=== PATIENT | male | born 1995 | race Two or more races ===

== ENCOUNTER → 2016-09-20 | Outpatient (CLI) | payer OTHER, MEDICAID | LOC: M OUTALCOH 10:53 | PROVIDERS: ATTEND Psychiatry & Neurology Psychiatry | DX: F12.20 Cannabis dependence, uncomplicated (principal); F10.20 Alcohol dependence, uncomplicated ==

== ENCOUNTER 2016-10-17 16:00 | Outpatient (RCR) | payer MEDICAID | END 2016-10-18 | LOC: M OUTALCOH 16:00 | PROVIDERS: ATTEND Psychiatry & Neurology Psychiatry | DX: F12.20 Cannabis dependence, uncomplicated (principal); F10.20 Alcohol dependence, uncomplicated; F17.200 Nicotine dependence, unspecified, uncomplicated ==

== ENCOUNTER 2016-10-28 14:00 | Outpatient (RCR) | payer MEDICAID | END 2016-11-17 | LOC: M OUTALCOH 14:00 | PROVIDERS: ATTEND Psychiatry & Neurology Psychiatry | DX: F10.20 Alcohol dependence, uncomplicated (principal); F12.20 Cannabis dependence, uncomplicated; F17.210 Nicotine dependence, cigarettes, uncomplicated ==

== ENCOUNTER → 2016-12-02 | Outpatient (CLI) | payer MEDICAID | LOC: M OUTALCOH 13:01 | PROVIDERS: ATTEND Psychiatry & Neurology Psychiatry | DX: F12.20 Cannabis dependence, uncomplicated (principal); F10.20 Alcohol dependence, uncomplicated ==

== ENCOUNTER 2016-12-13 15:36 | Outpatient (RCR) | payer MEDICAID | END 2016-12-18 | LOC: M OUTALCOH 15:36 | PROVIDERS: ATTEND Psychiatry & Neurology Psychiatry | DX: F10.20 Alcohol dependence, uncomplicated (principal); F12.20 Cannabis dependence, uncomplicated; F17.201 Nicotine dependence, unspecified, in remission ==

== ENCOUNTER 2017-01-09 13:00 | Outpatient (RCR) | payer MEDICAID | END 2017-01-17 | LOC: M OUTALCOH 13:00 | PROVIDERS: ATTEND Psychiatry & Neurology Psychiatry | DX: F12.20 Cannabis dependence, uncomplicated (principal); F10.20 Alcohol dependence, uncomplicated; F17.200 Nicotine dependence, unspecified, uncomplicated ==

== ENCOUNTER 2017-01-09 14:00 | Outpatient (RCR) | payer MEDICAID | END 2017-01-17 | LOC: M OUTALCOH 14:00 | PROVIDERS: ATTEND Psychiatry & Neurology Psychiatry | DX: F12.20 Cannabis dependence, uncomplicated (principal); F10.20 Alcohol dependence, uncomplicated; F17.200 Nicotine dependence, unspecified, uncomplicated ==

== ENCOUNTER → 2017-06-03 | Outpatient (CLI) | payer MEDICAID | LOC: M OUTALCOH 09:07 | PROVIDERS: ATTEND Psychiatry & Neurology Psychiatry | DX: F12.20 Cannabis dependence, uncomplicated (principal); F10.20 Alcohol dependence, uncomplicated ==

== ENCOUNTER 2017-06-16 15:31 | Inpatient (IN) | payer MEDICAID ==
[~2017-06-16] VITALS: Ht 180.3 cm; Wt 65.0 kg
[2017-06-16 17:36] LABS: MEAN CORPUSCULAR HEMOGLOBIN 33.2 pg (27.0-33.0); MEAN CORPUSCULAR HGB CONC 36.3 g/dl (32.0-36.5); MEAN CORPUSCULAR VOLUME 91.6 fl (80.0-96.0); PLATELET COUNT, AUTOMATED 348 10^3/uL (150-450); RED CELL DISTRIBUTION WIDTH 20.9 % (11.5-14.5); WHITE BLOOD COUNT 11.8 10^3/uL (4.0-10.0)
[2017-06-16 17:44] LABS: METHADONE URINE NEGATIVE (NEGATIVE)
[2017-06-16 17:53] LABS: ALBUMIN/GLOBULIN RATIO 1.61 (1.00-1.93); ALKALINE PHOSPHATASE 75 U/L (45-117); ALT/SGPT 36 U/L (12-78); ANION GAP 7 MEQ/L (8-16); AST/SGOT 34 U/L (7-37); BILIRUBIN,DIRECT 0.5 MG/DL (0.0-0.2); BLOOD UREA NITROGEN 14 MG/DL (7-18); CALCIUM LEVEL 9.2 MG/DL (8.5-10.1); CARBON DIOXIDE LEVEL 27 MEQ/L (21-32); CHLORIDE LEVEL 106 MEQ/L (98-107); CREATININE FOR GFR 0.69 MG/DL (0.70-1.30); GLUCOSE, FASTING 90 MG/DL (70-105); POTASSIUM SERUM 3.8 MEQ/L (3.5-5.1); SODIUM LEVEL 140 MEQ/L (136-145); TOTAL PROTEIN 8.1 GM/DL (6.4-8.2)
[2017-06-16] MEDS ORDERED: ACETAMINOPHEN TAB 650MG DOSE (2X325MG) PO PRN (18:30)
[2017-06-16] MEDS ORDERED: MAALOX 30 ML SUSP *UDC PO PRN (18:30)
[2017-06-16] MEDS ORDERED: MOM 30ML SUSPENSION UDC PO PRN (18:30)
[2017-06-16 20:21] VITALS: BP 118/57
[2017-06-17 06:48] VITALS: BP 126/65
[2017-06-17] MEDS: NICOTINE 21MG/24HR 1 EA TRANSDERMAL TD SCH (08:09)
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
[2017-06-17] MEDS: FOLIC ACID 1 MG TAB PO SCH (11:25)
[2017-06-17] MEDS: GABAPENTIN 300 MG CAP PO SCH ×3 (11:25→20:44)
--- NOTE | 2017-06-17 16:47 | ECGEPIP ---
Stationary ECG Study [facility] Test Date: 2017-06-17 Pat Name: ISABELLA HOWELL Department: Room: [place] [address] Gender: M Cw Operator: PHILLIP : [id number] Requested By: Lisa Wei Order Number: [id number] Reading MD: Shireen Maki Measurements Intervals [place] Rate: 67 P: 32 TX: 120 QRS: 56 QRSD: 94 T: 44 QT: 368 QTc: 391 Interpretive Statements SINUS RHYTHM VOLTAGE CRITERIA FOR LVH EARLY REPOLAR CHANGES NEW RATE SLOWER ST DEPRESSIONS IMPROVED C/W 01/06/13 Electronically Signed On 06-17-2017 16:47:05 EST by Shireen Maki
[2017-06-17 18:00] VITALS: BP 126/57
[2017-06-17] MEDS: traZODone 50 MG TAB PO PRN (20:44)
[2017-06-18 06:26] VITALS: BP 113/59
[2017-06-18 08:02] LABS: MEAN CORPUSCULAR HGB CONC 35.8 g/dl (32.0-36.5); MEAN CORPUSCULAR VOLUME 92.1 fl (80.0-96.0); PLATELET COUNT, AUTOMATED 344 10^3/uL (150-450); RED CELL DISTRIBUTION WIDTH 21.4 % (11.5-14.5); WHITE BLOOD COUNT 8.6 10^3/uL (4.0-10.0)
[2017-06-18] MEDS: FOLIC ACID 1 MG TAB PO SCH (08:10)
[2017-06-18] MEDS: NICOTINE 21MG/24HR 1 EA TRANSDERMAL TD SCH (08:10)
[2017-06-18] MEDS: GABAPENTIN 300 MG CAP PO SCH (08:10)
[2017-06-18 08:37] LABS: THYROXINE (T4) 10.3 UG/DL (6.0-11.6)
[2017-06-18] MEDS: OLANZapine 5 MG TAB PO PRN (11:46)
[2017-06-18] MEDS: ATOMOXETINE HCL 40 MG CAP (STRATTERA) PO SCH (12:41)
--- NOTE | 2017-06-18 15:31 | MHIPN ---
DATE: 06/18/2017 HISTORY: 21-year-old male with history of attention deficit hyperactivity disorder (ADHD) admitted for depression and suicidal thought. The patient was thinking about jumping off a bridge. MEDICATIONS: - Neurontin 600 mg by mouth twice a day - trazodone 50 mg by mouth nightly as needed for insomnia - olanzapine 5 mg by mouth every 6 hours for anxiety/agitation. SUBJECTIVE: "I am feeling about the same". OBJECTIVE: The patient has no side effect from the Neurontin. The patient reports some improvement after he took the medication so he felt less anxious yesterday but today says that he is more anxious. The patient is showing symptoms of hyperactivity and impulsivity typical of ADHD. There is no evidence of psychotic symptoms. No auditory or visual hallucinations or delusions. MENTAL STATUS EXAMINATION: The patient is dressed in [facility]. The patient is cooperative during the exam. The patient has fair eye contact. Speech is normal in rate, volume, and articulation. Is coherent and spontaneous. Mood is depressed and anxious. Affect is congruent with mood. No delusions. No hallucinations. Memory, attention and concentration are fair in the context of ADHD. The patient is able to contract for safety during the interview. Insight and judgment is limited. ASSESSMENT: 1. Depression. 2. Suicidal ideation. 3. Attention deficit hyperactivity disorder. PLAN: 1. Increase gabapentin to 800 mg by mouth four times a day. 2. Start Strattera 40 mg by mouth every morning. 3. Continue trazodone 50 mg by mouth nightly as needed for insomnia. 4. Continue olanzapine 5 mg by mouth every 6 hours as needed for anxiety an agitation.
[2017-06-18] MEDS: GABAPENTIN 400 MG CAP PO SCH ×2 (15:50→20:56)
[2017-06-18 18:00] VITALS: BP 130/75
[2017-06-18] MEDS: traZODone 50 MG TAB PO PRN (20:56)
[2017-06-19 06:34] VITALS: BP 136/77
[2017-06-19] MEDS: FOLIC ACID 1 MG TAB PO SCH (08:15)
[2017-06-19] MEDS: NICOTINE 21MG/24HR 1 EA TRANSDERMAL TD SCH (08:15)
[2017-06-19] MEDS: ATOMOXETINE HCL 40 MG CAP (STRATTERA) PO SCH (08:15)
[2017-06-19] MEDS: GABAPENTIN 400 MG CAP PO SCH ×3 (08:15→20:56)
--- NOTE | 2017-06-19 16:02 | MHIPN ---
DATE: 06/19/2017 HISTORY: A 21-year-old male with a history of attention deficit hyperactivity disorder (ADHD), admitted for depression and suicidal thoughts. Patient was thinking about jumping off a bridge. MEDICATIONS: - Neurontin 800 mg by mouth twice a day - trazodone 50 mg by mouth at bedtime as needed for insomnia - Strattera 40 mg by mouth every morning SUBJECTIVE: "I'm feeling a little better." OBJECTIVE: No major changes from yesterday. Patient reports less anxiety, irritability, and impulsivity since he has been started on medication. He is sleeping better. His behavior in the unit is correct. No evidence of agitation or behavioral disturbances. No auditory or visual hallucinations or delusions. Patient continues depressed. MENTAL STATUS EXAMINATION: Patient dressed in [facility]. Patient is cooperative. Patient has fair eye contacted. Speech is normal in rate, volume, and articulation. Is coherent and is spontaneous. Mood is depressed and anxious. Affect is congruent with mood. No delusions. No hallucinations. Memory, attention, and concentration are fair in the context of ADHD. Patient is able to contract for safety. Insight and judgment are limited. ASSESSMENT: 1. Depression. 2. Suicidal ideation. 3. Attention deficit hyperactivity disorder. PLAN: 1. Continue gabapentin 800 mg by mouth three times a day. 2. Strattera 40 mg by mouth every morning. 3. Trazodone 50 mg by mouth at bedtime as needed for insomnia.
[2017-06-19] MEDS: traZODone 50 MG TAB PO PRN (20:56)
[2017-06-19 22:10] VITALS: BP 117/58
[2017-06-20 06:15] VITALS: BP 112/59
[2017-06-20] MEDS: ATOMOXETINE HCL 40 MG CAP (STRATTERA) PO SCH (07:55)
[2017-06-20] MEDS: GABAPENTIN 400 MG CAP PO SCH ×3 (07:55→21:49)
[2017-06-20] MEDS: NICOTINE 21MG/24HR 1 EA TRANSDERMAL TD SCH (07:55)
[2017-06-20] MEDS: FOLIC ACID 1 MG TAB PO SCH (07:55)
--- NOTE | 2017-06-20 15:38 | MHIPN ---
DATE: 06/20/2017 HISTORY: A 21-year-old male with a history of attention deficit hyperactivity disorder (ADHD) and depression, admitted for suicidal ideation. Patient was thinking about jumping off a bridge. MEDICATIONS: - Neurontin 800 mg by mouth twice a day - trazodone 50 mg by mouth at bedtime - Strattera 40 mg by mouth every morning SUBJECTIVE: "I'm feeing better." OBJECTIVE: Patient continues improving. Patient reports benefits from the medications. Denies side effects. No evidence of psychotic symptoms. No auditory or visual hallucinations. No delusions. His impulsivity, hyperactivity, and irritability have significantly decreased with the help of medication. MENTAL STATUS EXAMINATION: Patient dressed in [facility]. Patient is cooperative. Has fair eye contact. The speech is normal in rate, volume, and articulation. Mood is dressed and anxious but improved. Affect is congruent with mood. No delusions. No hallucinations. Memory, attention, and concentration are fair in the context of ADHD. Patient is able to contract for safety while in the hospital. Insight and judgment are limited. ASSESSMENT: 1. Depression. 2. Suicidal ideation. 3. Attention deficit hyperactivity disorder. PLAN: 1. Continue gabapentin 800 mg by mouth three times a day. 2. Strattera 40 mg by mouth every morning. 3. Trazodone 50 mg by mouth at bedtime as needed for insomnia.
[2017-06-20] MEDS: OLANZapine 5 MG TAB PO PRN (16:59)
[2017-06-20 18:00] VITALS: BP 138/64
[2017-06-20] MEDS: traZODone 50 MG TAB PO PRN (21:50)
[2017-06-21 06:59] VITALS: BP 121/66
[2017-06-21] MEDS: FOLIC ACID 1 MG TAB PO SCH (08:22)
[2017-06-21] MEDS: ATOMOXETINE HCL 40 MG CAP (STRATTERA) PO SCH (08:22)
[2017-06-21] MEDS: NICOTINE 21MG/24HR 1 EA TRANSDERMAL TD SCH (08:22)
[2017-06-21] MEDS: GABAPENTIN 400 MG CAP PO SCH ×3 (08:22→20:53)
[2017-06-21 18:00] VITALS: BP 136/70
[2017-06-21] MEDS: traZODone 50 MG TAB PO PRN (22:40)
[2017-06-22 06:41] VITALS: BP 131/63
[2017-06-22] MEDS: FOLIC ACID 1 MG TAB PO SCH (08:29)
[2017-06-22] MEDS: NICOTINE 21MG/24HR 1 EA TRANSDERMAL TD SCH (08:29)
[2017-06-22] MEDS: ATOMOXETINE HCL 40 MG CAP (STRATTERA) PO SCH (08:29)
[2017-06-22] MEDS: GABAPENTIN 400 MG CAP PO SCH ×3 (08:29→22:00)
[2017-06-22 18:00] VITALS: BP 122/60
[2017-06-22] MEDS: traZODone 50 MG TAB PO PRN (22:00)
[2017-06-23 07:00] VITALS: BP 99/62
[2017-06-23] MEDS: GABAPENTIN 400 MG CAP PO SCH (08:11)
[2017-06-23] MEDS: FOLIC ACID 1 MG TAB PO SCH (08:11)
[2017-06-23] MEDS: NICOTINE 21MG/24HR 1 EA TRANSDERMAL TD SCH (08:11)
[2017-06-23] MEDS: ATOMOXETINE HCL 40 MG CAP (STRATTERA) PO SCH (08:11)
[2017-06-23] MEDS ORDERED: GABA-283 PO (10:36)
[2017-06-23] MEDS ORDERED: ATOM40CA PO (10:36)
[2017-06-23] MEDS ORDERED: FOLI1TAB4 PO (10:36)
[2017-06-23] MEDS ORDERED: TRAZO50TA PO (10:36)
--- NOTE | 2017-06-23 18:59 | MHDS ---
DATE OF ADMISSION: 06/16/2017 DATE OF DISCHARGE: 06/23/2017 LEGAL STATUS ON ADMISSION: 9.39 legal status. HISTORY OF PRESENT ILLNESS: 21-year-old male with a history of attention deficit hyperactivity disorder (ADHD) admitted on a 9.39 legal status. According to the record, the patient came to the emergency department to be evaluated for depression and suicidal thoughts. The patient was thinking about jumping off a bridge. The patient said that he feels depressed with low appetite, poor self esteem, intermittent suicidal thoughts. The patient also reported that he has been evicted from his apartment last week and has no place to stay. He is currently "couch surfing" each night. Said that he has a strained relationship with his mother, who lives out of state and cannot live with his father because he is currently in the process of custody dispute over his younger sister. The patient reports no alcohol intake since September of this year. The patient reported that he was drinking in binges on weekends before. The patient admits the use of marijuana two times weekly. The patient was referred to [facility] in the past and also to [facility] program, but he is not currently going. During the interview in our unit, the patient reports feeling depressed, having suicidal thoughts, no psychotic symptoms. No auditory or visual hallucinations or delusions. Symptoms are also compatible with attention deficit hyperactivity disorder (ADHD). He has been diagnosed of this condition since he was a child. He was taking Adderall in the past, but he stopped taking that medication. The patient reports being impulsive and having problems with anger and short temper. The patient also reports high anxiety. Again, no psychosis. No auditory or visual hallucinations or delusions. LABS AT ADMISSION: His CBC showed WBC of 11.8, RBC of 3.94, hemoglobin of 13.1, hematocrit of 36.1, RDW of 20.9. His CMP is unremarkable. TSH within normal limits. His urine drug screen is positive for cannabis, the rest is negative. HOSPITAL COURSE: After the first evaluation, he was started on Neurontin 600 mg by mouth three times a day and trazodone 50 mg by mouth at night as needed for insomnia. Neurontin did work well. He denied side effects so it was increased to 800 mg by mouth three times a day. He was also started later on Strattera 40 mg by mouth in the morning. With this medication, the patient was stabilized. The patient had no complications during this hospital admission. He improved slowly but steadily. By the end of the hospitalization, the patient reports significant improvement from his depression and also from the symptoms of ADHD, impulsivity, irritability, and anger management. On 06/23/2017, the patient is in stable condition with no auditory or visual hallucinations, delusions, suicidal or homicidal ideation. Therefore, the patient can be treated on an outpatient basis. He has been talking to his father and they end up agreeing that he will be living with his sister and the father will be monitoring the patient. MEDICATIONS AT DISCHARGE: - Neurontin 800 mg by mouth three times a day - Strattera 40 mg by mouth in the morning - trazodone 50 mg by mouth at night MENTAL STATUS EXAMINATION AT DISCHARGE: Patient is dressed in [facility]. Patient is calm and cooperative. Speech is clear, coherent, with normal rate and is spontaneous. Patient has good eye contact. Mood is euthymic. Affect is appropriate and congruent with mood. Patient is oriented to time, place, person and situation. Maintains attention and concentration correctly. Instant recall, recent and remote memory are intact. Thought processes are coherent, logical and goal directed. Patient does not have auditory or visual hallucination. Patient has paranoid, persecutory, somatic, grandiose or denominational delusions. Patient denies suicidal or homicidal ideation. Judgment and insight are fair. DISCHARGE DIAGNOSES: AXIS I: Adjustment disorder with depressed and anxious mood. Attention deficit hyperactivity disorder (ADHD). Substance induced mood disorder. Marijuana abuse. AXIS II: Deferred. AXIS III: Hereditary spherocytosis. CONDITION AT DISCHARGE: Stable. No auditory or visual hallucinations. No delusions. No homicidal or suicidal ideation. INSTRUCTIONS TO THE PATIENT: Patient is to continue taking his medications as prescribed and followup appointments. He is advised to maintain absolute sobriety from drugs and alcohol. Patient has a scheduled appointment for medication management, individual psychotherapy and primary care physician.
== END 2017-06-23 12:45 | disposition home or self-care (01) | DRG 882 ==
LOC: M ED 15:31 → M ED INP 18:23 → M PSY 20:15
PROVIDERS: ADMIT Psychiatry & Neurology Psychiatry; ATTEND Psychiatry & Neurology Psychiatry
DX: F43.23 Adjustment disorder with mixed anxiety and depressed mood (principal); F12.10 Cannabis abuse, uncomplicated; D58.0 Hereditary spherocytosis; F19.94 Other psychoactive substance use, unspecified with psychoactive substance-induced mood disorder; F10.10 Alcohol abuse, uncomplicated; F90.9 Attention-deficit hyperactivity disorder, unspecified type; F17.210 Nicotine dependence, cigarettes, uncomplicated; Z59.0 Homelessness; Z81.8 Family history of other mental and behavioral disorders; Z81.3 Family history of other psychoactive substance abuse and dependence

== ENCOUNTER 2017-08-24 19:34 | Inpatient (IN) | payer MEDICAID ==
[2017-08-24 20:17] LABS: HEMATOCRIT 37.2 % (42.0-52.0); HEMOGLOBIN 13.2 g/dl (14.0-18.0); MEAN CORPUSCULAR HEMOGLOBIN 32.7 pg (27.0-33.0); MEAN CORPUSCULAR HGB CONC 35.5 g/dl (32.0-36.5); MEAN CORPUSCULAR VOLUME 92.1 fl (80.0-96.0); PLATELET COUNT, AUTOMATED 343 10^3/uL (150-450); RED BLOOD COUNT 4.04 10^6/uL (4.30-6.10); RED CELL DISTRIBUTION WIDTH 22.1 % (11.5-14.5); WHITE BLOOD COUNT 10.9 10^3/uL (4.0-10.0)
[2017-08-24 20:40] LABS: AMPHETAMINES LEVEL URINE NEGATIVE (NEGATIVE); BARBITURATES URINE NEGATIVE (NEGATIVE); BENZODIAZEPINES URINE NEGATIVE (NEGATIVE); CANNABINOIDS URINE POSITIVE (NEGATIVE); COCAINE METABOLITE URINE NEGATIVE (NEGATIVE); METHADONE URINE NEGATIVE (NEGATIVE); OPIATES URINE NEGATIVE (NEGATIVE); PHENCYCLIDINE URINE NEGATIVE (NEGATIVE)
[2017-08-24 20:49] LABS: ALBUMIN 4.7 GM/DL (3.2-5.2); ALBUMIN/GLOBULIN RATIO 1.42 (1.00-1.93); ALKALINE PHOSPHATASE 82 U/L (45-117); ALT/SGPT 27 U/L (12-78); ANION GAP 6 MEQ/L (8-16); AST/SGOT 21 U/L (7-37); BILIRUBIN,DIRECT 0.4 MG/DL (0.0-0.2); BILIRUBIN,TOTAL 5.1 MG/DL (0.2-1.0); BLOOD UREA NITROGEN 12 MG/DL (7-18); CALCIUM LEVEL 8.7 MG/DL (8.5-10.1); CARBON DIOXIDE LEVEL 28 MEQ/L (21-32); CHLORIDE LEVEL 107 MEQ/L (98-107); CREATININE FOR GFR 0.76 MG/DL (0.70-1.30); ETHYL ALCOHOL (ETHANOL) < 0.003 % (0.000-0.010); GLUCOSE, FASTING 88 MG/DL (70-100); SALICYLATE LEVEL < 1.7 MG/DL (5.0-30.0); SODIUM LEVEL 141 MEQ/L (136-145)
[2017-08-24 20:55] LABS: ACETAMINOPHEN LEVEL < 2.0 UG/ML (10.0-30.0)
[2017-08-24] MEDS ORDERED: MOM 30ML SUSPENSION UDC PO (22:15)
[2017-08-24] MEDS ORDERED: ACETAMINOPHEN TAB 650MG DOSE (2X325MG) PO (22:15)
[2017-08-24] MEDS ORDERED: MAALOX 30 ML SUSP *UDC PO (22:15)
[2017-08-25] MEDS ORDERED: NICOTINE 21MG/24HR 1 EA TRANSDERMAL TD (01:45)
[2017-08-25] MEDS: FOLIC ACID 1 MG TAB PO (11:54)
[2017-08-25] MEDS ORDERED: OLANZapine ORAL DISINTEGRATING TAB 5MG PO (19:15)
[2017-08-25] MEDS ORDERED: hydrOXYzine 50 MG TAB PO (19:15)
[2017-08-26 07:45] LABS: HEMATOCRIT 36.8 % (42.0-52.0); HEMOGLOBIN 12.8 g/dl (14.0-18.0); MEAN CORPUSCULAR HEMOGLOBIN 32.2 pg (27.0-33.0); MEAN CORPUSCULAR HGB CONC 34.8 g/dl (32.0-36.5); MEAN CORPUSCULAR VOLUME 92.5 fl (80.0-96.0); PLATELET COUNT, AUTOMATED 314 10^3/uL (150-450); RED BLOOD COUNT 3.98 10^6/uL (4.30-6.10); RED CELL DISTRIBUTION WIDTH 22.2 % (11.5-14.5); WHITE BLOOD COUNT 7.8 10^3/uL (4.0-10.0)
[2017-08-26] MEDS: FOLIC ACID 1 MG TAB PO (09:40)
[2017-08-26] MEDS: ESCITALOPRAM OXALATE 10 MG TAB (LEXAPRO) PO (09:40)
[2017-08-26] MEDS: traZODone 50 MG TAB PO (21:21)
[2017-08-27] MEDS: FOLIC ACID 1 MG TAB PO (09:00)
[2017-08-27] MEDS: ESCITALOPRAM OXALATE 10 MG TAB (LEXAPRO) PO (09:00)
[2017-08-27] MEDS: traZODone 50 MG TAB PO (22:35)
[2017-08-28] MEDS: FOLIC ACID 1 MG TAB PO (08:41)
[2017-08-28] MEDS: ESCITALOPRAM OXALATE 10 MG TAB (LEXAPRO) PO (08:41)
== END 2017-08-28 13:35 | disposition home or self-care (01) | DRG 881 ==
LOC: M ED 19:34 → M ED INP 22:11 → M PSY 23:48
DX: F32.9 Major depressive disorder, single episode, unspecified (principal); R45.851 Suicidal ideations; F90.9 Attention-deficit hyperactivity disorder, unspecified type; F12.10 Cannabis abuse, uncomplicated; D72.829 Elevated white blood cell count, unspecified; D58.0 Hereditary spherocytosis; F17.210 Nicotine dependence, cigarettes, uncomplicated; F15.10 Other stimulant abuse, uncomplicated; Z79.899 Other long term (current) drug therapy

== ENCOUNTER → 2017-11-26 | Outpatient (CLI) | payer MEDICAID | LOC: M OUTALCOH 07:48 | DX: F12.20 Cannabis dependence, uncomplicated (principal); F10.20 Alcohol dependence, uncomplicated ==

== ENCOUNTER → 2018-01-27 | Outpatient (CLI) | payer MEDICAID | LOC: M OUTALCOH 08:15 | DX: F12.20 Cannabis dependence, uncomplicated (principal) ==

== ENCOUNTER 2018-02-04 13:17 | Outpatient (RCR) | payer MEDICAID | END 2018-02-17 | LOC: M OUTALCOH 13:17 | DX: F12.20 Cannabis dependence, uncomplicated (principal); F10.20 Alcohol dependence, uncomplicated; F17.200 Nicotine dependence, unspecified, uncomplicated ==

== ENCOUNTER 2018-03-27 16:28 | Outpatient (RCR) | payer MEDICAID | END 2018-04-19 | LOC: M OUTALCOH 16:28 | DX: F12.20 Cannabis dependence, uncomplicated (principal); F10.20 Alcohol dependence, uncomplicated; F17.200 Nicotine dependence, unspecified, uncomplicated ==

== ENCOUNTER 2018-04-21 09:00 | Outpatient (RCR) | payer MEDICAID | END 2018-05-20 | LOC: M OUTALCOH 04-23 14:00 | DX: F12.20 Cannabis dependence, uncomplicated (principal); F10.20 Alcohol dependence, uncomplicated; F17.200 Nicotine dependence, unspecified, uncomplicated ==

== ENCOUNTER 2018-05-21 14:00 | Outpatient (RCR) | payer MEDICAID | END 2018-06-19 | LOC: M OUTALCOH 05-26 09:00 | DX: F12.20 Cannabis dependence, uncomplicated (principal); F10.20 Alcohol dependence, uncomplicated; F17.200 Nicotine dependence, unspecified, uncomplicated ==

== ENCOUNTER → 2018-07-20 | Outpatient (RCR) | payer MEDICAID ==
[~2018-07-20] MED LIST: ATOM40CA PO; FOLI1TAB11 PO; GABA-845 PO; LEXA1TAB PO; TRAZ-160 PO; TRAZ25TA PO; TRAZO50TA PO; VIST50CA PO; patient comments
== END ==
LOC: M OUTALCOH 06-22 14:54
PROVIDERS: ATTEND Psychiatry & Neurology Psychiatry
DX: F12.20 Cannabis dependence, uncomplicated (principal); F10.20 Alcohol dependence, uncomplicated; F17.200 Nicotine dependence, unspecified, uncomplicated

== ENCOUNTER 2018-08-17 14:00 | Outpatient (RCR) | payer MEDICAID | END 2018-08-20 | LOC: M OUTALCOH 14:00 | PROVIDERS: ATTEND Psychiatry & Neurology Psychiatry | DX: F12.20 Cannabis dependence, uncomplicated (principal); F10.20 Alcohol dependence, uncomplicated; F17.200 Nicotine dependence, unspecified, uncomplicated ==

== ENCOUNTER 2019-08-25 09:53 | Emergency (ER) | payer MEDICAID, OTHER, SELFPAY ==
[~2019-08-25] VITALS: Ht 177.8 cm; Wt 78.8 kg
[~2019-08-25 09:53] MED LIST changes: -TRAZ-160 PO; +TRAZ-252 PO; +TRAZ1TAB10 PO; +TRAZ1TAB11 PO; -TRAZ25TA PO; -TRAZO50TA PO
[2019-08-25 11:14] LABS: GLUCOSE, URINE (UA) MANUAL NEGATIVE (NEGATIVE)
[2019-08-25 11:15] LABS: BILIRUBIN, URINE MANUAL OBSCURED (NEGATIVE); UROBILINOGEN, URINE MANUAL OBSCURED mg/dl (NORMAL)
[2019-08-25 11:30] LABS: AMORPHOUS SEDIMENT, URINE MOD AMOUNT (NEGATIVE); BACTERIA, URINE SMALL AMOUNT; HYALINE CAST, URINE NONE SEEN /lpf (0-1); MUCUS, URINE LARGE AMOUNT (NEGATIVE); RBC, URINE NONE SEEN /hpf (0-3); SQUAMOUS EPITHELIAL CELL URINE 0 /hpf (SMALL AMT)
[2019-08-25 11:42] LABS: INFLUENZA A AMPLIFICATION POSITIVE (NEGATIVE); INFLUENZA B AMPLIFICATION NEGATIVE (NEGATIVE)
[2019-08-25] MEDS ORDERED: ALBUTEROL SULFATE 2.5 MG/0.5 ML INH NEB SOLN NEB ONE (11:45)
[2019-08-25] MEDS ORDERED: IBUPROFEN 600 MG TAB PO ONE (11:45)
[2019-08-25] MEDS ORDERED: GI COCKTAIL 50ML BTL(HYOSCYAMINE/MAALOX/LIDOCAINE VISCOUS)(1:3:1) PO ONE (11:45)
[2019-08-25] MEDS ORDERED: BENZONATATE 100 MG CAP PO ONE (11:45)
--- NOTE | 2019-08-25 12:14 | REP ---
PA and lateral chest: There are no comparisons. The lung tripathi are clear. The cardiac size is normal. The kenton, mediastinum, and skeletal structures are unremarkable. Impression: Negative PA and lateral chest. Electronically Signed by Arturo Irving MD 08/25/2019 12:05 P
[2019-08-25] MEDS ORDERED: TESS100C PO (12:35)
[2019-08-25] MEDS ORDERED: IBUP-1022 PO (12:35)
[2019-08-25] MEDS ORDERED: PROAAER10 INH (12:35)
[2019-08-25 13:39] VITALS: BP 117/56
[2019-08-25 13:45] LABS: CHLAMYDIA DNA AMPLIFICATION NEGATIVE (NEGATIVE); GC DNA AMPLIFICATION NEGATIVE (NEGATIVE)
[2019-08-25] MEDS ORDERED: OSEL75CA PO (14:07)
== END 2019-08-25 14:10 | disposition home or self-care (01) ==
LOC: M ED 09:53
DX: J09.X2 Influenza due to identified novel influenza A virus with other respiratory manifestations (principal); Z20.2 Contact with and (suspected) exposure to infections with a predominantly sexual mode of transmission; D58.0 Hereditary spherocytosis; F17.210 Nicotine dependence, cigarettes, uncomplicated

== ENCOUNTER 2021-06-26 15:08 | Emergency (ER) | payer SELFPAY ==
[~2021-06-26] VITALS: Ht 180.3 cm; Wt 75.7 kg
[2021-06-26 15:08] VITALS: BP 132/68
[~2021-06-26 15:08] MED LIST changes: -ATOM40CA PO; +ATOM40CA16 PO; +GABA-283 PO; -GABA-845 PO; +IBUP-1022 PO; +OSEL75CA PO; +PROAAER10 INH; +TESS100C PO
--- OUTSIDE RECORDS SUMMARY | 2021-06-26 15:14 | CCD ---
Author Author [facility] Organization [facility] Address Unknown Phone Unavailable Support Name Relationship Address Phone Hemanth Domingo Next Of Kin [address] [place] [address] IAN ESCOBAR Next Of Kin [address] [place] [address] Tj NGUYEN, Beverly Next Of Kin [address] [place] [address] Zo Alejandro DDS Next Of Kin [address] [place], [place] [id number] GURVINDER OLVERA Next Of Kin [address] [place] [id number] TANVI WILKERSON Next Of Kin Unknown FAHAD GODFREY Next Of Kin [address] [place] [address] CHILD Next Of Kin Unknown Unavailable HOPSONJONATHAN UGARTE Next Of Kin [address] [facility] Unknown RUBY HOWELL Next Of Kin [address] [place] [address] UE Next Of Kin Unknown Unavailable GURVINDER ROBERTSON Next Of Kin [address] [facility] [address] [place] [address] Re-disclosure Warning The records that you are about to access may contain information from federally-assisted alcohol or drug abuse programs. If such information is present, then the following federally mandated warning applies: This information has been disclosed to you from records protected by federal confidentiality rules (42 CFR part 2). The federal rules prohibit you from making any further disclosure of this information unless further disclosure is expressly permitted by the written consent of the person to whom it pertains or as otherwise permitted by 42 CFR part 2. A general authorization for the release of medical or other information is NOT sufficient for this purpose. The Federal rules restrict any use of the information to criminally investigate or prosecute any alcohol or drug abuse patient.The records that you are about to access may contain highly sensitive health information, the redisclosure of which is protected by Article 27-F of the [facility] Public Health law. If you continue you may have access to information: Regarding HIV / AIDS; Provided by facilities licensed or operated by the [facility] Office of Mental Health; or Provided by the [facility] Office for People With Developmental Disabilities. If such information is present, then the following [facility] mandated warning applies: This information has been disclosed to you from confidential records which are protected by state law. State law prohibits you from making any further disclosure of this information without the specific written consent of the person to whom it pertains, or as otherwise permitted by law. Any unauthorized further disclosure in violation of state law may result in a fine or senior care sentence or both. A general authorization for the release of medical or other information is NOT sufficient authorization for further disc losure. Medications No Information Insurance Providers Payer name Policy type / Coverage type Policy ID Covered constitution party ID Covered constitution party's relationship to green Policy Green Plan Information BCBS GENERIC C [id number] Child [id number] [place] 020/520 [id number] FA2 [id number] EXCELLUS I [id number] Self [id number] MEDICAID M [id number] Self [id number] Managed Care - Community Plan [facility] P [id number] S [id number] Medicaid S [id number] S [id number] Medicaid Dental O [id number] S [id number] Medicaid S [id number] S [id number] Managed Care - Community Plan [facility] P [id number] S [id number] Medicaid S [id number] S [id number] Managed Care - Community Plan [facility] P [id number] S [id number] Managed Care - Community Plan [facility] P [id number] S [id number] Managed Care - [facility] Community Plan P [id number] S [id number] [facility] [id number] SP [id number] [facility] [id number] SP [id number] [facility] [id number] SP [id number] [facility] COMMUNITY PLAN MCDO [id number] SP [id number] BLUE CROSS GOULD PLAN [id number] SP [id number] MEDICAID W [id number] S [id number] BLUE CHOICE OPTION O [id number] S [id number] MEDICAID GME W [id number] S [id number] BLUE CHOICE OPTION W [id number] S [id number] [place] O [id number] P W [id number] [place] 020/520 [id number] FA2 [id number] BLUE CHOICE OPTION O [id number] S [id number] MEDICAID-PHYSICIAN [id number] 18 C [id number] BLUE CROSS BLUE SHIELD-CLINIC [id number] 18 [id number] MEDICAID - CLINIC [id number] UNAVAILABLE UNAVAILA BLE [id number] SELF PAY ONLY [id number] SP [id number] UNAVAILABLE UNAVAILA BLE O UNAVAILABLE UNAVAILA BLE [facility] COMMUNITY PLAN MCDO [id number] SP [id number] [facility] [id number] SP [id number] [facility] [id number] SP [id number] MEDICAID [id number] SP [id number] MEDICAID [id number] SP [id number] MEDICAID [id number] SP [id number] Excellus BCYO O [id number] S W [id number] Usable Insurance O [id number] S [id number] Accidental O [id number] S [id number] Managed Care [facility] O [id number] S [id number] Usable Administrators O [id number] S [id number] Problems, Conditions, and Diagnoses No Information Surgeries/Procedures No Information Results No Information Social History No Information
--- OUTSIDE RECORDS SUMMARY | 2021-06-26 21:25 | CCD ---
Author Author [facility] Organization [facility] Address Unknown Phone Unavailable Support Name Relationship Address Phone Hemanth Domingo Next Of Kin [address] [place] [address] IAN ESCOBAR Next Of Kin [address] [email or web address] [address] Tj NGUYEN, [place] Next Of Kin [address] [place] [address] Zo Alejandro DDS Next Of Kin [address] [place], [place] [id number] GURVINDER OLVERA Next Of Kin [address] [place] [id number] TANVI WILKERSON Next Of Kin Unknown FAHAD GODFREY Next Of Kin [address] [place] [address] CHILD Next Of Kin Unknown Unavailable HOPSONJONATHAN UGARTE Next Of Kin [address] [facility] Unknown RUBY HOWELL Next Of Kin [address] [place] [address] UE Next Of Kin Unknown Unavailable GURVINDER ROBERTSON Next Of Kin [address] [facility] [address] [place] [address] Re-disclosure Warning The records that you are [...] by Article 27-F of the [facility] Public Health law. If you continue you may have access to information: Regarding HIV / AIDS; Provided by facilities licensed or operated by the [facility] Office of Mental Health; or Provided by the [facility] Office for People With Developmental Disabilities. If such information is present, then the following [facility] mandated warning applies: This information has been [...] law may result in a fine or [place] health [facility] [place] sentence or both. A general authorization for the release of medical or other information is NOT sufficient authorization for further disc losure. Medications No Information Insurance Providers Payer name Policy type / Coverage type Policy ID Covered republican ID Covered republican's relationship to green Policy Green Plan Information BCBS GENERIC C [id number] Child [id number] [place] 020/520 [id number] FA2 [id number] EXCELLUS I [id number] Self [id number] MEDICAID M [id number] Self [id number] Managed Care - Community Plan [facility] P [id number] S [id number] Medicaid S [id number] S [id number] Medicaid Dental O [id number] S [id number] Medicaid S [id number] S [id number] Managed Care - Community Plan [facility] P [id number] S [id number] Medicaid S [id number] S [id number] Managed Care - Community Plan [facility] P [id number] S [id number] Managed Care - Community Plan [facility] P [id number] S [id number] Managed Care - [facility] Community Plan P [id number] S [id number] [facility] [id number] SP [id number] [facility] [id number] SP [id number] [facility] [id number] SP [id number] [facility] COMMUNITY PLAN MCDO [id number] SP [id number] BLUE CROSS GOULD PLAN [id number] SP [id number] MEDICAID W [id number] S [id number] BLUE CHOICE OPTION O [id number] S [id number] MEDICAID GME W [id number] S [id number] BLUE CHOICE OPTION W [id number] S [id number] [place] O [id number] P W [id number] [place] 020/520 [id number] FA2 [id number] BLUE CHOICE OPTION O [id number] S [id number] MEDICAID-PHYSICIAN [id number] 18 C [id number] BLUE CROSS BLUE SHIELD-CLINIC [id number] 18 [id number] MEDICAID - CLINIC [id number] UNAVAILABLE UNAVAILA BLE [id number] SELF PAY ONLY [id number] SP [id number] UNAVAILABLE UNAVAILA BLE O UNAVAILABLE UNAVAILA BLE [facility] COMMUNITY PLAN MCDO [id number] SP [id number] [facility] [id number] SP [id number] [facility] [id number] SP [id number] MEDICAID [id number] SP [id number] MEDICAID [id number] SP [id number] MEDICAID [id number] SP [id number] Excellus BCYO O [id number] S W [id number] D Usable Insurance O [id number] S [id number] Accidental O [id number] S [id number] Managed Care [facility] O [id number] S [id number] Usable Administrators O [id number] S [id number] Problems, Conditions, and Diagnoses No Information Surgeries/Procedures No Information Results No Information Social History No Information
[2021-06-27] MEDS ORDERED: AUGM875T28 PO (12:26)
[2021-06-27] MEDS ORDERED: CIPR7.5D5 OTIC (12:26)
[2021-06-27] MEDS ORDERED: FOLI1TAB11 PO (12:29)
== END 2021-06-26 21:21 | disposition left against medical advice (07) ==
LOC: M ED 15:08
DX: Z53.29 Procedure and treatment not carried out because of patient's decision for other reasons (principal)

== ENCOUNTER 2021-06-27 01:37 | Emergency (ER) | payer SELFPAY ==
[~2021-06-27] VITALS: Ht 180.3 cm; Wt 75.3 kg
[2021-06-27] MEDS ORDERED: ISOVUE-370 76% 100ML VIAL As Ordered ONE (10:49)
[2021-06-27 10:52] LABS: BASO # 0.1 10^3/uL (0.0-0.2); BASO % 0.7 % (0.0-1.0); EOS # 0.1 10^3/uL (0.0-0.5); EOS % 0.5 % (0.0-3.0); HEMOGLOBIN 11.9 g/dl (13.5-17.5); LYMPH # 2.1 10^3/uL (1.5-5.0); LYMPH % 17.1 % (24.0-44.0); MEAN CORPUSCULAR HEMOGLOBIN 33.1 pg (27.0-33.0); MEAN CORPUSCULAR VOLUME 94.7 fl (80.0-96.0); MONO % 8.2 % (2.0-8.0); NEUTROPHILS # 8.7 10^3/uL (1.5-8.5); PLATELET COUNT, AUTOMATED 252 10^3/uL (150-450); RED BLOOD COUNT 3.59 10^6/uL (4.30-6.10); WHITE BLOOD COUNT 12.3 10^3/uL (4.0-10.0)
[2021-06-27 11:16] LABS: MONO SCRN NEGATIVE (NEGATIVE)
[2021-06-27 11:17] LABS: ALBUMIN 4.4 GM/DL (3.2-5.2); ALT/SGPT 19 U/L (12-78); BILIRUBIN,DIRECT 0.6 MG/DL (0.0-0.2); LIPASE 58 U/L (73-393); TOTAL PROTEIN 7.6 GM/DL (6.4-8.2)
[2021-06-27] MEDS ORDERED: CIPROFLOXACIN HC OTIC SUSPENSION AD ONE (11:25)
[2021-06-27] MEDS ORDERED: KETOROLAC 30 MG/ML 1ML VIAL IV ONE (11:25)
[2021-06-27] MEDS ORDERED: NS 1,000 ML IV ONE (11:40)
[2021-06-27] MEDS ORDERED: methylPREDNISolone 125MG 2ML VIAL IV ONE (12:00)
[2021-06-27 12:17] LABS: LDH LACTATE DEHYDROGENASE 422 U/L (87-241)
[2021-06-27] MEDS ORDERED: AUGM875T28 PO (12:26)
[2021-06-27] MEDS ORDERED: CIPR7.5D5 OTIC (12:26)
[2021-06-27] MEDS ORDERED: FOLI1TAB11 PO (12:29)
[2021-06-27 13:07] VITALS: BP 128/62
== END 2021-06-27 13:09 | disposition home or self-care (01) ==
LOC: M ED 01:37
DX: H60.91 Unspecified otitis externa, right ear (principal); H65.01 Acute serous otitis media, right ear; R16.1 Splenomegaly, not elsewhere classified; E80.6 Other disorders of bilirubin metabolism; D58.0 Hereditary spherocytosis
CPT/HCPCS: 74177; 80047; 80076; 83010; 83605; 83615; 83690; 85025; 85046; 86308; 87070; 87077; 87186; 87205; 96361; 96374; 96375; 99284; J1885; J2930; Q9967

== ENCOUNTER → 2022-07-19 | Outpatient (CLI) | payer MEDICAID ==
[~2022-07-19] MED LIST changes: +AUGM875T28 PO; +CIPR7.5D5 OTIC
== END ==
LOC: M OUTALCOH 08:01
PROVIDERS: ATTEND Psychiatry & Neurology Psychiatry
DX: F17.200 Nicotine dependence, unspecified, uncomplicated (principal)